=== PATIENT | female | born 1950 | race Caucasian/White ===

== ENCOUNTER → 2017-06-03 | Outpatient (CLI) | payer MEDICARE ==
[~2017-06-03] MED LIST: CALCIUM 600 +1 EA15; DICYCLOMINE HCL20 MG PO; DOCUSATE SODIU100 MG PO; FLONASE ALLERG9.9 ML; FOSAMAX70 MG PO; KEPPRA500 M2; LEVOTHYROXINE88 MCG PO; MIRALAX17 GM; MULTI-DAY VITA1 EACH; PROAIR HFA8.5 GM INH; QVAR8.7 GM; RISPERDAL2 MG PO; VITAMIN D32000 UNIT PO; ZOCOR PO
--- NOTE | ~2017-06-03 | EKG ---
PATIENT: DENG AMBRIZ UNIT #: [id number] Ventricular Rate: 65 BPM Atrial Rate: 65 BPM P-R Interval: 138 ms QRS Duration: 88 ms Q-T Interval: 444 ms QTC Calculation(Bezet): 461 ms P Weiser: 86 degrees Calculated R Weiser: -71 degrees Calculated T Weiser: 47 degrees Diagnosis Line: Normal sinus rhythm Diagnosis Line: Left anterior fascicular block Diagnosis Line: probable right ventricular enlargement Diagnosis Line: Abnormal ECG Diagnosis Line: No previous ECGs available Diagnosis Line: Confirmed by GWENDOLYN CONTRERAS MD ([id number]) on 06/03/2017 Diagnosis Line: 6:54:14 PM INTERPRETING MD: BEN CELAYA
[2017-06-03 10:15] LABS: ALBUMIN SERUM 4.3 g/dL (3.5-5.0); BILIRUBIN,TOTAL 0.8 mg/dL (0.2-2.0); CREATININE SERUM 0.9 mg/dL (0.6-1.4); GLOM FILT RATE Estimated 67.1 mL/min (>60); POTASSIUM 3.8 mmol/L (3.5-5.1); PROTEIN TOTAL SERUM 7.3 g/dL (6.0-8.3)
[2017-06-03 13:01] LABS: HEMATOCRIT 42.2 % (35.0-45.0); HEMOGLOBIN 14.2 gm/dL (12.0-16.0); MEAN CELL VOLUME 90.4 FL (83-96); MEAN CORPUSCULAR HEMOGLOBIN 30.3 PG (28-34); MEAN CORPUSCULAR HGB CONC 33.6 g/dL (30-36); MEAN PLATELET VOLUME 8.5 FL (6.5-11.5); RED BLOOD COUNT 4.67 X10e (3.90-5.30); WHITE BLOOD COUNT 4.9 X10e3 (4.0-10.5)
== END | disposition home or self-care (01) ==
LOC: CAMB 08:29
PROVIDERS: Surgery
DX: Z01.818 Encounter for other preprocedural examination (principal); K80.20 Calculus of gallbladder without cholecystitis without obstruction
CPT/HCPCS: 36415; 80053; 85027; 93005

== ENCOUNTER → 2017-06-10 | Day surgery (SDC) | payer MEDICARE ==
--- NOTE | ~2017-06-10 | OR ---
Unit #: [id number] #: [id number] Patient: DENG AMBRIZ [id number] [address] [place], [place] [address] [id number] MR#: [id number] NAME: DENG AMBRIZ ROOM: Date of Procedure: 06/10/2017 Admission Date: 06/10/2017 Surgeon: Jacinto Monson Jr., M.D. : 1950 Attending Physician: Jacinto Monson Jr., M.D. Primary Care Physician: Ellyn Cohen M.D. OPERATIVE REPORT INDICATIONS FOR PROCEDURE The patient is a 66-year-old white female, who has been having intermittent mid epigastric and right upper quadrant abdominal pain and worked up noted to have evidence of gallstones. It is felt she has had biliary colic. She is brought in this time for laparoscopic cholecystectomy at her request. She understands the procedure including the risks, including that of perforation, bleeding, intraabdominal organ injury, and common duct injury, and consents. PREOPERATIVE DIAGNOSES Chronic cholecystitis and cholelithiasis with biliary colic. POSTOPERATIVE DIAGNOSES Chronic cholecystitis and cholelithiasis with biliary colic, noting adhesions in the right lower quadrant of the abdomen as well as hydrops of the gallbladder. ANESTHESIA General with endotracheal intubation and 0.5% Marcaine with epinephrine locally. PROCEDURE PERFORMED Laparoscopic cholecystectomy. DESCRIPTION OF PROCEDURE The patient was positioned in the supine position. After being anesthetized and intubated, she was prepped and draped in routine fashion for laparoscopic cholecystectomy. A small infraumbilical incision made approximately a 1 cm in length. This was carried down to the fascia. The fascia in the umbilicus was lifted with a towel clip, and a Veress needle introduced in the abdomen. The abdomen was then inflated with CO2 gas. A 5-mm port was introduced into the abdomen followed by the camera. There was no evidence of any injury related to introduction of the port of the Veress needle. Brief intra-abdominal exploration was carried out. The patient noted to have what appeared to be a chronically inflamed gallbladder with some adhesions as well as adhesions in the right lower quadrant of her abdominal area. Two 5-mm ports were placed laterally and 11-mm port just right of the upper midline. The gallbladder was lifted. Dissection was carried out in the area of the gallbladder, where there were multiple adhesions. These were taken down with both sharp and blunt dissection. The gallbladder appeared to be distended and possibly obstructed. Bile was aspirated from the gallbladder to allow for grasping Unit #: [id number] #: [id number] Patient: DENG AMBRIZ and there was clear bile within the gallbladder compatible with hydrops of the gallbladder. Dissection was then carried out on the triangle of Calot, cystic duct was isolated, hemoclipped x4, and divided approximately a 1 cm from its junction with the common duct. Cystic artery was identified, hemoclipped x3, and divided. The gallbladder was then removed from its bed with the hook cautery using a current of 20 and after it was released, it was placed in EndoCatch bag and brought out through the larger port site. The port was replaced. Subhepatic space checked. There was no evidence of any bleeding from the gallbladder bed. The clips on cystic duct and cystic artery were intact with no evidence of any leak or bleeding. After hemostasis was noted, the CO2 was expressed from the abdomen and the ports removed. There was no evidence of any bleeding from the port sites. The fascia in the larger port site was approximated with [id number] 0 Vicryl suture. The wounds were irrigated. After hemostasis achieved with Bovie cautery, skin edges were approximated with stainless-steel skin clips and skin stapling device. Sterile dressing was applied externally. Estimated blood loss less than 50 mL. The patient received less than 1000 mL crystalloid solution during the procedure. Sponges and instrument counts were correct x3. No drains were used. No complications. The patient was taken to the recovery room with stable vital signs in satisfactory condition. Dictated by... Jacinto Monson Jr., M.D. JMB/stephanie TD: 06/10/2017 14:12 JOB #: [id number] OPERATIVE REPORT Page 1 of 1 X Jacinto oMnson MD X PROCEDURE OPERATIVE NOTE
== END | disposition home or self-care (01) ==
LOC: CSUR 10:19
DX: K80.10 Calculus of gallbladder with chronic cholecystitis without obstruction (principal); E03.9 Hypothyroidism, unspecified; J45.909 Unspecified asthma, uncomplicated; M19.90 Unspecified osteoarthritis, unspecified site; G40.909 Epilepsy, unspecified, not intractable, without status epilepticus; M81.0 Age-related osteoporosis without current pathological fracture; Z88.5 Allergy status to narcotic agent; Z85.3 Personal history of malignant neoplasm of breast; Z88.2 Allergy status to sulfonamides; Z88.8 Allergy status to other drugs, medicaments and biological substances; Z79.899 Other long term (current) drug therapy; Z98.51 Tubal ligation status; Z90.12 Acquired absence of left breast and nipple; Z98.890 Other specified postprocedural states
CPT/HCPCS: 88304; J0330; J0690; J1644; J2250; J2405; J2710; J3010